=== PATIENT | female | born 1990 | race Caucasian/White ===

== ENCOUNTER → 2020-03-11 11:32 | Outpatient (CLI) | payer MEDICAID, SELFPAY ==
[2020-03-03 10:41] VITALS: BMI 23.0
--- NOTE | 2020-03-11 11:32 | US_ITS ---
STUDY: ULTRASOUND OF THE FEMALE PELVIS - COMPLETE REASON FOR EXAM: Female, 29 years old. IRREGULAR MENSES -- LT OOPHORECTOMY -- LT PELVIC PAIN LMP: 02/20/2020. TECHNIQUE: Transabdominal and Transvaginal TECHNICAL QUALITY: Adequate. COMPARISON: None. FINDINGS: The uterus is anteverted and is in a midline position. The uterus measures 9.2 cm x 5.6 cm x 4.0 cm. There is a Nabothian cyst of the cervix. The endometrium measures 4.6 mm in thickness, and is hyperechoic. There is no demonstrated endometrial mass. There is no demonstrated myometrial mass. I.U.D. - The patient does not have an I.U.D. The right ovary is visualized. The right ovary measures 3.6 cm x 2.6 cm x 1.9 cm. A dominant follicle is seen within the ovary measuring 1.7 cm x 1.9 cm x 1.7 cm. There is no visualized right adnexal mass or complex lesion. There is normal arterial and normal venous vascularity. The patient is status post left nephrectomy. There is minimal fluid in the cul-de-sac. US/Transvaginal Non- IMPRESSION: 1.7 cm x 1.9 cm by 1.7 cm dominant follicle in the right ovary. The patient is status post left oophorectomy. Minimal amount of free fluid in the cul-de-sac. Electronically Signed: Epifanio Anand, at 14:25 EDT , Service support ,
--- NOTE | 2020-03-11 11:32 | US_ITS ---
STUDY: ULTRASOUND OF THE FEMALE PELVIS - COMPLETE REASON FOR EXAM: Female, 29 years old. IRREGULAR MENSES -- LT OOPHORECTOMY -- LT PELVIC PAIN LMP: 02/20/2020. TECHNIQUE: Transabdominal and Transvaginal TECHNICAL QUALITY: Adequate. COMPARISON: None. FINDINGS: The uterus is anteverted and is in a midline position. The uterus measures 9.2 cm x 5.6 cm x 4.0 cm. There is a Nabothian cyst of the cervix. The endometrium measures 4.6 mm in thickness, and is hyperechoic. There is no demonstrated endometrial mass. There is no demonstrated myometrial mass. I.U.D. - The patient does not have an I.U.D. The right ovary is visualized. The right ovary measures 3.6 cm x 2.6 cm x 1.9 cm. A dominant follicle is seen within the ovary measuring 1.7 cm x 1.9 cm x 1.7 cm. There is no visualized right adnexal mass or complex lesion. There is normal arterial and normal venous vascularity. The patient is status post left nephrectomy. There is minimal fluid in the cul-de-sac. US/Pelvic (Non ) IMPRESSION: 1.7 cm x 1.9 cm by 1.7 cm dominant follicle in the right ovary. The patient is status post left oophorectomy. Minimal amount of free fluid in the cul-de-sac. Electronically Signed: Epifanio Anand, at 14:25 EDT , Service support ,
== END ==
PROVIDERS: Referring Provider Nurse Practitioner Women's Health; Visit Provider Nurse Practitioner Women's Health
DX: N93.9 Abnormal uterine and vaginal bleeding, unspecified (principal)
CPT/HCPCS: 76830; 76856

== ENCOUNTER → 2020-04-01 13:46 | Outpatient (CLI) | payer MEDICAID, SELFPAY ==
[2020-03-03 10:41] VITALS: BMI 23.0
[2020-04-01 15:06] LABS: hCG Titer Quant., Serum 373 mIU/mL (1-3)
== END ==
PROVIDERS: Referring Provider Nurse Practitioner Women's Health; Visit Provider Nurse Practitioner Women's Health
DX: N91.2 Amenorrhea, unspecified (principal)
CPT/HCPCS: 36415; 84702

== ENCOUNTER → 2020-04-03 10:05 | Outpatient (CLI) | payer MEDICAID, SELFPAY ==
[2020-03-03 10:41] VITALS: BMI 23.0
[2020-04-03 11:46] LABS: hCG Titer Quant., Serum 572 mIU/mL (1-3)
== END ==
PROVIDERS: Referring Provider Nurse Practitioner Women's Health; Visit Provider Nurse Practitioner Women's Health
DX: N91.2 Amenorrhea, unspecified (principal)
CPT/HCPCS: 36415; 84702

== ENCOUNTER → 2021-05-19 10:34 | Outpatient (CLI) | payer MEDICAID, SELFPAY ==
--- NOTE | 2021-05-19 10:36 | NM_ITS ---
Gastric emptying study INDICATION: Abdominal pain, nausea, vomiting. TECHNIQUE: After the administration of 1 mCi of technetium 99m sulfur colloid in a meal of oatmeal orally, multiple scintigraphic images of the abdomen and pelvis were obtained. Furthermore, counts were obtained in the gastric emptying curve was plotted. FINDINGS: There is normal uptake within the stomach with passage through the duodenum into the small bowel. After 30 minutes, there is 51% gastric retention which is normal. After 1 hour, there is 27% gastric retention which is decreased consistent with rapid gastric emptying. T1 half is calculated to be 29 minutes which is decreased. IMPRESSION: Rapid gastric emptying. Electronically Signed: Harshad Adkins MD at 12:28 EDT Tel , Service support , NM/Gastric Emptying Study
== END ==
PROVIDERS: Referring Provider Internal Medicine Gastroenterology; Visit Provider Internal Medicine Gastroenterology
DX: R11.2 Nausea with vomiting, unspecified (principal)
CPT/HCPCS: 78264; A9541

== ENCOUNTER → 2021-07-28 13:32 | Outpatient (CLI) | payer MEDICAID, SELFPAY ==
--- NOTE | 2021-07-28 13:36 | CT_ITS ---
STUDY: CT ABDOMEN AND PELVIS WITH CONTRAST REASON FOR EXAM: Female, 30 years old. Dumping syndrome, GERD, nausea and vomiting RADIATION DOSAGE (If Supplied By Facility): CTDIvol = ( 12.06 ) mGy, DLP = ( 374.92 ) mGycm TECHNIQUE: Transaxial images were obtained from the dome of the diaphragm to the symphysis pubis with oral contrast. Oral and amp;amp; IV Readi-CAT and amp;amp; 100mL Isovue-300 was administered. Sagittal and coronal images were reconstructed. Individualized dose optimization techniques were used for this CT. COMPARISON: None. FINDINGS: The visualized lung bases are unremarkable. The visualized portions of the heart are within normal limits. Normal liver. Normal gallbladder and extrahepatic biliary system. Normal spleen. Normal pancreas. Normal bilateral adrenal glands. Normal right kidney. Normal left kidney. There is a small hiatal hernia. Normal small intestine. Normal colon. Moderate amount of fecal material is seen in the right hemicolon. The appendix is visualized and appears normal. Normal abdominal aorta. Normal inferior vena cava. Normal retroperitoneum. Normal urinary bladder. Small amount of free fluid is seen in the cul-de-sac. There is evidence of a dominant follicle in the right ovary. Normal abdominal wall. Normal osseous structures. CT/Abdomen/Pelvis WITH Contrast IMPRESSION: Small amount of free fluid in the cul-de-sac. Dominant follicle in the right ovary. Electronically Signed: Epifanio Anand MD at 15:18 EST , Service support ,
== END ==
PROVIDERS: Referring Provider Internal Medicine Gastroenterology; Visit Provider Internal Medicine Gastroenterology
DX: K91.1 Postgastric surgery syndromes (principal); K21.9 Gastro-esophageal reflux disease without esophagitis; R11.2 Nausea with vomiting, unspecified
CPT/HCPCS: 74177; 87426; Q9967

== ENCOUNTER 2021-08-16 11:57 | Day surgery (SDC) | payer MEDICAID, SELFPAY ==
[2021-08-16] VITALS (7 sets, daily range): BP systolic 88–131; BP diastolic 51–108; PULSE 60–74; RESP 16; TEMP 35.7–36.2; O2SAT 98–100; BMI 24.2
--- NOTE | 2021-08-16 12:05 | HP.PCM_ITS ---
History and Physical Date of Admission: 08/16/21 SANTANA REIS, is a 30 F who presents to the office today for Last visit 05/26/21 for continued evaluation of nausea and abdominal pain. Gastric emptying study performed showed rapid emptying. Dumping syndrome ? recommend anti-dumping diet. Decrease protein intake and small frequent meals. GERD ? Stop current PPI and start famotidine BID Nausea and vomiting ? Zofran to break the cycle and hopefully slow gastric emptying. Continues to have nausea and abdominal pain. Famotidine has not had any noticeable effect. Zofran has been helpful but she has to take this frequently. States that increased abdominal pressure makes nausea and abdominal pain worse. Has reduced protein to 25grams of added protein. Small frequent meals is going well overall, but has not made a difference. She has not had an EGD done by this office. She thinks she had one previously but doesn?t remember the results. Around this time she was told she has an overactive gallbladder. ROS Gastro GI: Positive for abdominal pain, bloating, diarrhea, heartburn, nausea/dyspepsia and vomiting Musc Musculoskeletal: Positive for back pain and muscle weakness Psych Psychiatric: Positive for anxiety Exam Const General: cooperative and comfortable Nutritional Appearance: average body habitus and well nourished [facility] Head: normal to inspection Ears: hearing grossly normal bilaterally Nose: external nose normal Face and sinus: normal facial exam Mouth: oral mucosae normal Throat: posterior oropharynx normal Eyes General: appearance normal, both eyes and all related structures Neck Neck: normal visual inspection Chest Chest palpation & inspection: normal inspection of the chest and normal palpation of entire chest wall Resp Effort & Inspection: normal respiratory effort Auscultation: Bilateral: Clear to Auscultation Cardio Palpation: normal PMI Rate: regular rate Rhythm: regular rhythm GI Inspection: normal to inspection Auscultation: normal bowel sounds Percussion: normal to percussion Palpation: no hepatosplenomegaly Skin General: no rashes or lesions noted Neuro General: patient alert Extrem General: normal to inspection Psych Affect: normal affect Quality Reporting Tobacco Screening ([facility]) Smoking Status: Never smoker Assessment and Plan Assessment and Plan (1) Dumping syndrome: Status: Acute Plan - Dr. Ni Friend, DO: She will need an upper endoscopy to evaluate her upper GI tract. She had a gastric emptying study that showed an accelerated emptying of the stomach in less than 15 minutes. This possibly secondary to a wide-open pylorus or an overactive peristalsis in the stomach. We will evaluate this more thoroughly with an upper endoscopy. (2) GERD (gastroesophageal reflux disease): Status: Acute Plan - Dr. Ni Friend, DO: She is not having any good results with PPI therapy or H2 receptor jessie. I suspect that she has nonerosive reflux disease. We will evaluate this on upper endoscopy (3) Nausea and vomiting: Status: Acute Plan - Dr. Ni Friend, DO: Nausea vomiting possibly secondary to an accelerated gastrocolic reflex versus a functional bowel disease. We will give her a short course of Reglan at night because most of her nausea is in the morning. The risk and benefits of metoclopramide therapy were expressed to the patient. Plan Details Other Medications: New: metoclopramide HCl 5 mg PO QHS 60 tabs 0RF I have re-examined the patient. There are no clinical changes since date of exam.
[2021-08-16 12:25] LABS: Internal QC Validated? YES +Cl - CLEAR BKGD; Pregnancy, Urine Negative Negative
[2021-08-16] MEDS: Lactated Ringers 1,000 ML 15 ML IV (12:27)
--- NOTE | 2021-08-16 13:00 | EGD_PTH ---
PATIENT: SANTANA REIS LOC: EN U#:[id number] AGE/SX: 30/F ROOM: RE08/16/[address]: Dr. Last Arreguin DO : 1990 BED: DIS: 08/16/2021 SPEC #: [id number] RECD: 08/16/21 15:02 STATUS: PAYAM GRACIE #: [id number] JADON: 08/16/21 13:[address]: Last Arreguin DEPT: SURGICAL PATHOLOGY RECD BY: Yuliya Vann Tissues: A - Duodenum, NOS B - Gastric mucous membrane C - Esophagus, NOS Procedures: Special Stain Group II Surgery Specimen Level IV Alcian Blue/PAS (control) HEADER OPERATION: EGD ([facility]) PRE-OP DIAGNOSIS: Dumping syndrome, GERD, nausea and vomiting TISSUE SUBMITTED: A ? Duodenum biopsy, B ? Gastric antrum biopsy for histo and H. pylori, C ? Distal esophagus biopsy MICROSCOPIC DIAGNOSIS A. Duodenum, biopsy: No pathologic change. B. Gastric antrum, biopsy: Chronic gastritis. See comment. C. Distal esophagus, biopsy: Gastroesophageal junctional mucosa with mild chronic inflammation and focal changes of reflux. No evidence of goblet cell metaplasia. See comment. AM:kota 08/18/2021 COMMENT B. The results of immunohistochemistry for Helicobacter pylori will be reported separately ([id number]). C. Alcian blue/PAS stain with matched control supports the above diagnosis. MICROSCOPIC DESCRIPTION Slides are reviewed. GROSS DESCRIPTION A - Received in fixative is one container labeled with the patient's name and designated duodenum biopsy. The specimen consists of multiple irregular fragments of light rich soft tissue that in aggregate measure 1.5 x 0.5 x 0.1 cm. The specimen is totally submitted in one cassette. B - Received in fixative is one container labeled with the patient's name and designated antrum biopsy. The specimen consists of multiple irregular fragments of light rich soft tissue that in aggregate measure 1.5 x 0.3 x 0.1 cm. The specimen is totally submitted in one cassette. C - Received in fixative is one container labeled with the patient's name and designated distal esophagus biopsy. The specimen consists of multiple irregular fragments of light rich soft tissue that in aggregate measure 1 x 0.3 x 0.1 cm. The specimen is totally submitted in one cassette. / ORIANA:kota 08/17/21 TC:3 CPT: 85639 x3, 93373
--- NOTE | 2021-08-16 13:00 | IMM_PTH ---
PATIENT: SANTANA REIS LOC: EN U#:[id number] AGE/SX: 30/F ROOM: RE08/16/[address]: Dr. Last Arreguin DO : 1990 BED: DIS: 08/16/2021 SPEC #: [id number] RECD: 08/17/21 09:39 STATUS: PAYAM GRACIE #: [id number] JADON: 08/16/21 13:[address]: Last Arreguin DEPT: IMMUNOHISTOCHEMISTRY RECD BY: Shannan Rey Tissues: B - Stomach, NOS Procedures: H Pylori (initial) PHYSICIAN & INSTITUTION [place] [id number] SPECIMEN INFORMATION: Tissue Source: B ? Gastric antrum Clinical Info: Dumping syndrome, GERD, nausea, vomiting Specimen Number: [id number] CPT code: 53035 METHODOLOGY: Deparaffinized sections of prefer/formalin-fixed tissue or PAP/DQ stained slides are incubated with monoclonal/polyclonal antibodies/oligonucleotide probes. Localization is made via biotin free immunoperoxidase method. Appropriate controls are performed and reacted as expected. Results on target cell population are indicated in the following table: RESULTS: ANTIBODY / CLONE RESULT Block B H Pylori (polyclonal) negative These tests were developed and their performance characteristics determined by [facility]. They may not have been cleared or approved by the U.S. Food and Drug Administration. The FDA has determined that such clearance or approval is not necessary. INTERPRETATION: B. Gastric antrum, biopsy: Negative for Helicobacter pylori organisms. AM:kota 08/18/2021
--- NOTE | 2021-08-16 13:41 | OP.EGD_ITS ---
Patient Name: Ruby Ramos Procedure Date: 08/16/2021 1:14 PM Date of : 1990 Age: 30 Procedure: Upper GI endoscopy Indications: Epigastric abdominal pain Providers: Last Arreguin DO Referring MD: Last Arreguin DO Medicines: See the Anesthesia note for documentation of the administered medications Patient Profile: This is a 30 year old female. Refer to note in patient chart for documentation of history and physical. Patient has symptoms. The symptoms first began within the past few months. Complications: No immediate complications. Procedure: Pre-Anesthesia Assessment: - Prior to the procedure, a History and Physical was performed, and patient medications and allergies were reviewed. The risks and benefits of the procedure and the sedation options and risks were discussed with the patient. All questions were answered and informed consent was obtained. Patient identification and proposed procedure were verified by the physician in the pre-procedure area. Mental Status Examination: alert and oriented. Airway Examination: normal oropharyngeal airway and neck mobility. Respiratory Examination: clear to auscultation. CV Examination: normal. Prophylactic Antibiotics: The patient does not require prophylactic antibiotics. Prior Anticoagulants: The patient has taken no previous anticoagulant or antiplatelet agents. ASA Grade Assessment: II - A patient with mild systemic disease. After reviewing the risks and benefits, the patient was deemed in satisfactory condition to undergo the procedure. The anesthesia plan was to use moderate sedation / analgesia (conscious sedation). Immediately prior to administration of medications, the patient was re-assessed for adequacy to receive sedatives. The heart rate, respiratory rate, oxygen saturations, blood pressure, adequacy of pulmonary ventilation, and response to care were monitored throughout the procedure. The physical status of the patient was re-assessed after the procedure. After obtaining informed consent, the endoscope was passed under direct vision. Throughout the procedure, the patient's blood pressure, pulse, and oxygen saturations were monitored continuously. The Endoscope was introduced through the mouth, and advanced to the second part of duodenum. The upper GI endoscopy was accomplished without difficulty. The patient tolerated the procedure well. Moderate Sedation: Moderate (conscious) sedation was administered by the endoscopy nurse and supervised by the endoscopist. The patient's oxygen saturation, heart rate, blood pressure and response to care were monitored. Total physician intraservice time was 15 minutes. Scope In: 1:20:22 PM Scope Out: 1:31:55 PM Total Procedure Duration Time 0 hours 11 minutes 33 seconds Findings: LA Grade A (one or more mucosal breaks less than 5 mm, not extending between tops of 2 mucosal folds) esophagitis with no bleeding was found 34 to 35 cm from the incisors. Biopsies were taken with a cold forceps for histology. Verification of patient identification for the specimen was done. Estimated blood loss was minimal. Patchy mildly erythematous mucosa without bleeding was found in the gastric antrum. Biopsies were taken with a cold forceps for histology. Verification of patient identification for the specimen was done. Estimated blood loss was minimal. Patchy mildly erythematous mucosa without active bleeding and with no stigmata of bleeding was found in the duodenal bulb. Biopsies were taken with a cold forceps for histology. Verification of patient identification for the specimen was done. Estimated blood loss was minimal. Impression: - LA Grade A reflux esophagitis. Biopsied. - Erythematous mucosa in the antrum. Biopsied. - Erythematous duodenopathy. Biopsied. Recommendation: - Discharge patient to home. - Resume previous diet. - Continue present medications. - Await pathology results. - Repeat upper endoscopy in 1 year for surveillance based on pathology results. - Return to GI office in 2 weeks. Procedure Code(s): --- Professional --- 98416, Esophagogastroduodenoscopy, flexible, transoral; with biopsy, single or multiple 35582, 59, Moderate sedation services provided by the same physician or other qualified health personal care worker performing the diagnostic or therapeutic service that the sedation supports, requiring the presence of an independent trained observer to assist in the monitoring of the patient's level of consciousness and physiological status; initial 15 minutes of intraservice time, patient age 5 years or older CPT copyright 2017 [employer]. All rights reserved. The codes documented in this report are preliminary and upon mixing operator review may be revised to meet current compliance requirements. Last Arreguin DO 08/16/2021 1:41:17 PM This report has been signed electronically. Number of Addenda: 1 Note Initiated On: 08/16/2021 1:14 PM Addendum Number: 1 Addendum Date: 04/20/2022 6:04:13 AM MAC was used instead of moderate sedation for the patient. Last Arreguin DO 04/20/2022 6:04:18 AM This report has been signed electronically.
== END 2021-08-16 23:59 | disposition home or self-care (01) ==
LOC: EN 12:00 → AC 12:02
PROVIDERS: Anesthesiology; Referring Provider Internal Medicine Gastroenterology; Visit Provider Internal Medicine Gastroenterology
PROC: 0DJ08ZZ Inspection of Upper Intestinal Tract, Via Natural or Artificial Opening Endoscopic (ICD-10-PCS; CPT 43235; principal; 2021-08-16 12:55)
DX: K29.50 Unspecified chronic gastritis without bleeding (principal); K21.00 Gastro-esophageal reflux disease with esophagitis, without bleeding; K91.1 Postgastric surgery syndromes; F41.9 Anxiety disorder, unspecified; Z79.899 Other long term (current) drug therapy; Z87.19 Personal history of other diseases of the digestive system
CPT/HCPCS: 43239; 81025; 87426; 88305; 88313; 88342; C9803; J7120; J2405

== ENCOUNTER 2021-09-27 13:02 | Outpatient (CLI) | payer MEDICAID, SELFPAY ==
[2021-09-30 03:07] LABS: Chlamydia By Nucleic Acid AMP Negative (Negative)
[2021-09-30 16:05] LABS: Gonococcus By Nucleic Acid AMP Negative (Negative)
== END 2021-09-27 23:59 | disposition home or self-care (01) ==
LOC: LABSPEC 13:05
PROVIDERS: Visit Provider Nurse Practitioner Women's Health
DX: N76.0 Acute vaginitis (principal); Z20.2 Contact with and (suspected) exposure to infections with a predominantly sexual mode of transmission
CPT/HCPCS: 87070; 87205; 87491; 87591

== ENCOUNTER 2021-10-07 09:52 | Outpatient (CLI) | payer MEDICAID, SELFPAY ==
--- NOTE | 2021-10-07 09:53 | US_ITS ---
STUDY: ULTRASOUND OF THE FEMALE PELVIS - COMPLETE REASON FOR EXAM: Female, 31 years old. Right pelvic pain. History of prior left nephrectomy. History of endometriosis. LMP: 10/02/2021. TECHNIQUE: Transabdominal and Transvaginal TECHNICAL QUALITY: Adequate. COMPARISON: Comparison is made with prior study dated 03/11/2020. FINDINGS: The uterus is anteverted and is in a midline position. The uterus measures 8.7 cm x 5.8 cm x 4 cm. Normal uterine cervix. The endometrium measures 4.4 mm in thickness, and is hyperechoic. Small amount of fluid is seen in the cervix. There is no demonstrated endometrial mass. There is no demonstrated myometrial mass. I.U.D. - The patient does not have an I.U.D. The right ovary is visualized. The right ovary measures 3.9 cm x 3 cm x 1.2 cm. There is no right ovarian cyst or ovarian mass. There is no visualized right adnexal mass or complex lesion. There is normal arterial and normal venous vascularity. The patient is status post left nephrectomy. There is minimal fluid in the cul-de-sac. The pre void volume of the bladder was 192 ml. Polycystic ovary disease: No. US/Pelvic (Non ) IMPRESSION: Status post left nephrectomy. Minimal amount of free fluid in the cul-de-sac. Electronically Signed: Epifanio Anand MD at 13:01 EST ,
--- NOTE | 2021-10-07 09:53 | US_ITS ---
STUDY: ULTRASOUND OF THE FEMALE PELVIS - COMPLETE REASON FOR EXAM: Female, 31 years old. Right pelvic pain. History of prior left nephrectomy. History of endometriosis. LMP: 10/02/2021. TECHNIQUE: Transabdominal and Transvaginal TECHNICAL QUALITY: Adequate. COMPARISON: Comparison is made with prior study dated 03/11/2020. FINDINGS: The uterus is anteverted and is in a midline position. The uterus measures 8.7 cm x 5.8 cm x 4 cm. Normal uterine cervix. The endometrium measures 4.4 mm in thickness, and is hyperechoic. Small amount of fluid is seen in the cervix. There is no demonstrated endometrial mass. There is no demonstrated myometrial mass. I.U.D. - The patient does not have an I.U.D. The right ovary is visualized. The right ovary measures 3.9 cm x 3 cm x 1.2 cm. There is no right ovarian cyst or ovarian mass. There is no visualized right adnexal mass or complex lesion. There is normal arterial and normal venous vascularity. The patient is status post left nephrectomy. There is minimal fluid in the cul-de-sac. The pre void volume of the bladder was 192 ml. Polycystic ovary disease: No. US/Transvaginal Non- IMPRESSION: Status post left nephrectomy. Minimal amount of free fluid in the cul-de-sac. Electronically Signed: Epifanio Anand MD at 13:01 EST ,
[2021-10-07 12:32] LABS: HIV - WCH Non-Reactive (Nonreactive); Syphilis Antibodies Non-reactive
[2021-10-08 09:49] LABS: HSV 2 IgG < 0.91 index (0.00-0.90)
== END 2021-10-07 23:59 | disposition home or self-care (01) ==
PROVIDERS: Referring Provider Nurse Practitioner Women's Health; Visit Provider Nurse Practitioner Women's Health
DX: Z20.2 Contact with and (suspected) exposure to infections with a predominantly sexual mode of transmission (principal); R10.2 Pelvic and perineal pain; G89.29 Other chronic pain; N80.9 Endometriosis, unspecified
CPT/HCPCS: 36415; 76830; 76856; 86695; 86696; 86703; 86780; 93976

== ENCOUNTER → 2022-02-03 | Outpatient (CLI) | payer MEDICAID, SELFPAY ==
[2022-02-03 13:26] LABS: Estradiol 95.4 pg/mL; Follicle Stimulating Hormone 3.8 mIU/mL; Thyroid Stim Hormone (TSH) 1.42 uIU/mL (0.358-3.74)
== END | disposition home or self-care (01) ==
LOC: PAVLAB 12:36
PROVIDERS: Referring Provider Obstetrics & Gynecology; Visit Provider Obstetrics & Gynecology
DX: R10.2 Pelvic and perineal pain (principal); G89.29 Other chronic pain; N80.9 Endometriosis, unspecified; Z13.29 Encounter for screening for other suspected endocrine disorder
CPT/HCPCS: 36415; 82670; 83001; 84443

== ENCOUNTER → 2022-02-14 | Outpatient (CLI) | payer MEDICAID, SELFPAY ==
--- NOTE | 2022-02-14 08:49 | US_ITS ---
STUDY: ULTRASOUND OF THE FEMALE PELVIS - COMPLETE REASON FOR EXAM: Female, 31 years old. Pelvic pain LMP: 02/06/2022. TECHNIQUE: Transabdominal and Transvaginal TECHNICAL QUALITY: Adequate. COMPARISON: Comparison is made with prior study dated 10/07/2021. FINDINGS: The uterus is anteverted and is in a midline position. The uterus measures 7.5 cm x 5.9 cm x 4.5 cm. Normal uterine cervix. The endometrium measures 7 mm in thickness, and is hyperechoic. There is no demonstrated endometrial mass. There is no demonstrated myometrial mass. I.U.D. - The patient does not have an I.U.D. The right ovary is visualized. The right ovary measures 4.1 cm x 3.1 cm x 1.7 cm. Small follicles are seen within the right ovary. There is no visualized right adnexal mass or complex lesion. There is normal arterial and normal venous vascularity. The patient is status post left oophorectomy. Small amount of free fluid is seen adjacent to the right orbit. The pre void volume of the bladder was 36 ml. US/Pelvic (Non ) IMPRESSION: Status post left oophorectomy. Small follicles are seen in the right ovary. Small amount of free fluid surrounding the right ovary. Electronically Signed: Epifanio Anand MD at 14:50 EDT ,
--- NOTE | 2022-02-14 08:49 | US_ITS ---
STUDY: ULTRASOUND OF THE FEMALE PELVIS - COMPLETE REASON FOR EXAM: Female, 31 years old. Pelvic pain LMP: 02/06/2022. TECHNIQUE: Transabdominal and Transvaginal TECHNICAL QUALITY: Adequate. COMPARISON: Comparison is made with prior study dated 10/07/2021. FINDINGS: The uterus is anteverted and is in a midline position. The uterus measures 7.5 cm x 5.9 cm x 4.5 cm. Normal uterine cervix. The endometrium measures 7 mm in thickness, and is hyperechoic. There is no demonstrated endometrial mass. There is no demonstrated myometrial mass. I.U.D. - The patient does not have an I.U.D. The right ovary is visualized. The right ovary measures 4.1 cm x 3.1 cm x 1.7 cm. Small follicles are seen within the right ovary. There is no visualized right adnexal mass or complex lesion. There is normal arterial and normal venous vascularity. The patient is status post left oophorectomy. Small amount of free fluid is seen adjacent to the right orbit. The pre void volume of the bladder was 36 ml. US/Transvaginal Non- IMPRESSION: Status post left oophorectomy. Small follicles are seen in the right ovary. Small amount of free fluid surrounding the right ovary. Electronically Signed: Epifanio Anand MD at 14:50 EDT ,
== END | disposition home or self-care (01) ==
LOC: OPUS 08:48
PROVIDERS: Visit Provider Obstetrics & Gynecology
DX: R10.2 Pelvic and perineal pain (principal); G89.29 Other chronic pain
CPT/HCPCS: 76830; 76856; 93976

== ENCOUNTER → 2022-04-13 | Outpatient (CLI) | payer MEDICAID, SELFPAY ==
--- NOTE | 2022-04-13 12:33 | RAD_ITS ---
STUDY: HISTORY OF SEPTOPLASTY. REASON FOR EXAM: Female, 31 years old. Tubal patency. The patient is status post resection of the left fallopian tube. FLUOROSCOPY TIME (if supplied): ( 22 seconds ) minutes/seconds. One image was submitted. TECHNIQUE: A hysterosalpingogram was performed by the security officer. Imaging was provided. COMPARISON: None. FINDINGS: The uterus is unremarkable. The right fallopian tube is patent with spill. RAD/Salpingogram IMPRESSION: The right fallopian tube is patent with spill. The uterus is unremarkable. Electronically Signed: Epifanio Anand MD at 13:24 EDT ,
--- NOTE | 2022-04-13 13:04 | OP.PCM_ITS ---
Operative Report Date of Procedure: 04/13/22 Preop diagnosis: Infertility Postop diagnosis: Infertility, right tubal patency, surgical absence of left tube Procedure: Hysterosalpingogram Surgeon: Valerie Rivera DO Implantable devices: None Complications: None Findings: Bilateral tubal patency and normal uterine cavity Operative details: Patient was taken to the x-ray room and was placed on the x- ray table and was in the dorsal lithotomy position. Speculum was placed in the vagina and the cervix prepped with Betadine and the HSG catheter was easily introduced into the uterus and speculum removed. Radiologist was brought in and while pushing radiopaque dye into the uterus via the HSG catheter the radiologist took multiple images and views and confirmed right tubal patency. The left fallopian tube is surgically removed. No gross uterine filling defects or abnormalities were seen. All instruments removed from the vagina and the uterus without complication. Patient tolerated the procedure well. Multi Select Codes Urinary/Genital Urinary/Genital CPT Codes: 14142 HSG/SIS
== END | disposition home or self-care (01) ==
LOC: RAD 12:32
PROVIDERS: Referring Provider Obstetrics & Gynecology; Visit Provider Obstetrics & Gynecology
DX: Z31.9 Encounter for procreative management, unspecified (principal)
CPT/HCPCS: 58340; 74740; Q9967

== ENCOUNTER → 2022-06-25 | Outpatient (CLI) | payer MEDICAID, SELFPAY | END | disposition home or self-care (01) | LOC: LAB 09:12 | PROVIDERS: Referring Provider Nurse Practitioner Women's Health; Visit Provider Nurse Practitioner Women's Health | DX: N97.0 Female infertility associated with anovulation (principal) | CPT/HCPCS: 36415; 84144 ==

== ENCOUNTER → 2022-07-17 | Outpatient (CLI) | payer MEDICAID, SELFPAY ==
[2022-07-17 11:07] LABS: HIV - WCH Non-Reactive (Nonreactive); Hepatitis C Antibody Non-Reactive (Nonreactive); Syphilis Antibodies Non-reactive
[2022-07-18 10:58] LABS: HSV 2 IgG < 0.91 index (0.00-0.90)
[2022-07-19 06:07] LABS: Chlamydia By Nucleic Acid AMP Negative (Negative)
[2022-07-19 09:26] LABS: Gonococcus By Nucleic Acid AMP Negative (Negative)
== END | disposition home or self-care (01) ==
LOC: PAVLAB 09:40
PROVIDERS: Referring Provider Nurse Practitioner Women's Health; Visit Provider Nurse Practitioner Women's Health
DX: Z20.2 Contact with and (suspected) exposure to infections with a predominantly sexual mode of transmission (principal)
CPT/HCPCS: 36415; 86695; 86696; 86703; 86780; 86803; 87491; 87591

== ENCOUNTER 2022-10-04 11:29 | Outpatient (CLI) | payer MEDICAID, SELFPAY ==
--- NOTE | 2022-10-04 11:30 | US_ITS ---
STUDY: ULTRASOUND OF THE FEMALE PELVIS - COMPLETE REASON FOR EXAM: Female, 32 years old. Pelvic pain LMP: 09/11/2022. TECHNIQUE: Transabdominal and Transvaginal TECHNICAL QUALITY: Adequate. COMPARISON: Comparison is made with prior study dated 02/11/2022. FINDINGS: The uterus is anteverted and is in a midline position. The uterus measures 9.9 cm x 6.2 cm x 4.9 cm. There is a Nabothian cyst of the cervix. The endometrium measures 8 mm in thickness, and is hyperechoic. There is no demonstrated endometrial mass. There is no demonstrated myometrial mass. I.U.D. - The patient does not have an I.U.D. The right ovary is visualized. The right ovary measures 4.4 cm x 3.2 cm x 2.2 cm. A complex cyst measuring 2 cm x 1.6 cm x 1.6 cm in the right ovary. There is no visualized right adnexal mass or complex lesion. There is normal arterial and normal venous vascularity. The patient is status post left oophorectomy. There is minimal fluid in the cul-de-sac. The pre void volume of the bladder was 129 ml. US/Pelvic w/ Transvaginal IMPRESSION: 2 cm x 1.6 cm x 1.6 cm complex cyst in the right ovary. Follow-up is recommended. Electronically Signed: Epifanio Anand MD at 15:42 EST ,
[2022-10-04 11:41] LABS: hCG Titer Quant., Serum < 1 mIU/mL (1-3)
== END 2022-10-04 23:59 | disposition home or self-care (01) ==
PROVIDERS: Referring Provider Obstetrics & Gynecology; Visit Provider Registered Nurse
DX: R10.2 Pelvic and perineal pain (principal); G89.29 Other chronic pain
CPT/HCPCS: 36415; 76830; 76856; 84702; 93976

== ENCOUNTER → 2022-11-09 | Outpatient (CLI) | payer MEDICAID, SELFPAY ==
--- NOTE | 2022-11-09 14:35 | US_ITS ---
STUDY: ULTRASOUND OF THE FEMALE PELVIS - COMPLETE REASON FOR EXAM: Female, 32 years old. ov mass f/u . Patient is status post left nephrectomy. LMP: November 03, 2002. TECHNIQUE: Transabdominal and Transvaginal TECHNICAL QUALITY: Adequate. COMPARISON: Comparison is made with prior study dated October 04, 2022. FINDINGS: The uterus is anteverted and is in a midline position. The uterus measures 8.4 cm x 5.1 cm x 4.2 cm. Normal uterine cervix. The endometrium measures 6.4 mm in thickness, and is hyperechoic. There is no demonstrated endometrial mass. There is no demonstrated myometrial mass. I.U.D. - The patient does not have an I.U.D. The right ovary is visualized. The right ovary measures 5.1 cm x 2.9 cm x 2.1 cm. There is a 1.4 cm x 1.2 cm x 1.3 centimeter complex cyst in the right ovary. This has decreased in size as compared to prior study. There is no visualized right adnexal mass or complex lesion. There is normal arterial and normal venous vascularity. The patient is status post left oophorectomy US/Pelvic w/ Transvaginal IMPRESSION: Decreased size of the complex cyst in the right ovary. It presently measures 1.4 cm x 1.2 cm x 1.3 cm. The patient is status post left oophorectomy. Electronically Signed: Epifanio Anand MD at 10:38 EDT ,
== END | disposition home or self-care (01) ==
LOC: US 14:33
PROVIDERS: Referring Provider Nurse Practitioner Women's Health; Visit Provider Nurse Practitioner Women's Health
DX: R10.2 Pelvic and perineal pain (principal); G89.29 Other chronic pain
CPT/HCPCS: 76830; 76856

== ENCOUNTER → 2023-03-09 | Outpatient (CLI) | payer MEDICAID, SELFPAY ==
[2023-03-12 22:07] LABS: Chlamydia By Nucleic Acid AMP Negative (Negative); Gonococcus By Nucleic Acid AMP Negative (Negative)
[2023-03-16 15:08] LABS: HPV APTIMA, High Risk Negative (Negative)
== END | disposition home or self-care (01) ==
LOC: LABSPEC 16:14
PROVIDERS: Referring Provider Obstetrics & Gynecology; Visit Provider Obstetrics & Gynecology
DX: Z12.4 Encounter for screening for malignant neoplasm of cervix (principal); Z11.3 Encounter for screening for infections with a predominantly sexual mode of transmission; N89.8 Other specified noninflammatory disorders of vagina
CPT/HCPCS: 87070; 87205; 87491; 87591; 87624; 88175; G0145

== ENCOUNTER → 2023-04-13 | Outpatient (CLI) | payer MEDICAID, SELFPAY ==
[2023-04-13 12:11] LABS: HIV - WCH Non-Reactive (Nonreactive); Hepatitis B Surface Antigen Non-Reactive (Nonreactive); Hepatitis C Antibody Non-Reactive (Nonreactive); Syphilis Antibodies Non-reactive
[2023-04-14 07:08] LABS: HSV 2 IgG < 0.91 index (0.00-0.90)
== END | disposition home or self-care (01) ==
LOC: PAVLAB 10:44
PROVIDERS: Referring Provider Obstetrics & Gynecology; Visit Provider Obstetrics & Gynecology
DX: Z11.3 Encounter for screening for infections with a predominantly sexual mode of transmission (principal)
CPT/HCPCS: 36415; 86695; 86696; 86703; 86780; 86803; 87340

== ENCOUNTER → 2023-08-23 | Outpatient (CLI) | payer MEDICAID, SELFPAY ==
[2023-08-23 11:34] LABS: HIV - WCH Non-Reactive (Nonreactive); Hepatitis B Surface Antigen Non-Reactive (Nonreactive); Hepatitis C Antibody Non-Reactive (Nonreactive); Syphilis Antibodies Non-reactive
[2023-08-24 07:08] LABS: HSV 2 IgG < 0.91 index (0.00-0.90)
== END | disposition home or self-care (01) ==
PROVIDERS: Referring Provider Nurse Practitioner Women's Health; Visit Provider Nurse Practitioner Women's Health
DX: Z20.2 Contact with and (suspected) exposure to infections with a predominantly sexual mode of transmission (principal)
CPT/HCPCS: 36415; 86695; 86696; 86703; 86780; 86803; 87340

== ENCOUNTER → 2023-11-05 | Outpatient (CLI) | payer MEDICAID, SELFPAY ==
[2023-11-05 14:02] LABS: HIV - WCH Non-Reactive (Nonreactive); Hepatitis B Surface Antigen Non-Reactive (Nonreactive); Hepatitis C Antibody Non-Reactive (Nonreactive); Syphilis Antibodies Non-reactive
[2023-11-06 05:08] LABS: HSV 2 IgG < 0.91 index (0.00-0.90)
== END | disposition home or self-care (01) ==
LOC: LAB 12:12
PROVIDERS: Referring Provider Obstetrics & Gynecology; Visit Provider Obstetrics & Gynecology
DX: B00.9 Herpesviral infection, unspecified (principal)
CPT/HCPCS: 36415; 86695; 86696; 86703; 86780; 86803; 87340

== ENCOUNTER → 2023-12-05 | Outpatient (CLI) | payer MEDICAID, SELFPAY ==
--- NOTE | 2023-12-05 12:30 | RAD_ITS ---
INDICATION: infertility EXAMINATION/TECHNIQUE: Routine hysterosalpingography was performed. Total Fluoroscopic Time: 5.1 seconds AND number of Fluoroscopic Images: 4 OR Radiation dosage index: 13.63 mGy. COMPARISON: No relevant prior comparison study available FINDINGS: The uterine cavity contour is unremarkable. There are no filling defects or abnormalities. Both fallopian tubes are patent with free peritoneal spillage bilaterally. RAD/Salpingogram IMPRESSION: Negative hysterosalpingogram. Electronically Signed: Epifanio Anand MD at 13:28 EDT ,
--- NOTE | 2023-12-05 13:03 | OP.PCM_ITS ---
Problems Associated Problem List Diagnoses (1) Infertility: (2) Endometriosis: (3) Chronic pelvic pain in female: Report of Operation Date of Procedure: 12/05/23 Pre-Operative Diagnosis: infertility, history of left salpingectomy Post-Operative Diagnosis: infertility, history of left salpingectomy Surgery/Procedure Performed:: hysterosalpingogram Description of Surgical Findings:: Preop diagnosis: Infertility Postop diagnosis:Infertility , right tubal patency Procedure: Hysterosalpingogram Surgeon:Valerie Rivera DO Implantable devices: None Complications: None Findings: Bilateral tubal patency and normal uterine cavity Operative details: Patient was taken to the x-ray room and was placed on the x- ray table and was in the dorsal lithotomy position. Speculum was placed in the vagina and the cervix prepped with Betadine and the HSG catheter was easily introduced into the uterus and speculum removed. Radiologist was brought in and while pushing radiopaque dye into the uterus via the HSG catheter the radiologist took multiple images and views and confirmed right tubal patency seen. No gross uterine filling defects or abnormalities were seen. All instruments removed from the vagina and the uterus without complication. Patient tolerated the procedure well. Multi Select Codes Urinary/Genital Urinary/Genital CPT Codes: 83219 HSG/SIS
== END | disposition home or self-care (01) ==
PROVIDERS: Visit Provider Obstetrics & Gynecology
DX: N97.9 Female infertility, unspecified (principal)
CPT/HCPCS: 58340; 74740; Q9967

== ENCOUNTER → 2024-01-24 | Outpatient (CLI) | payer MEDICAID, SELFPAY ==
[2024-01-24 16:30] LABS: Absolute Lymphocyte Count 2.48 X10^3/uL (0.83-4.51); Basophil# 0.07 X10^3/uL; Eosinophil# 0.06 X10^3/uL; Eosinophils% 0.8 % (0-5); Hematocrit 35.5 % (37-47); Lymphocyte # 2.48 X10^3/ul (0.83-4.51); Lymphocyte % 33.8 % (19-41); Mean Corp Hgb Conc 33.8 g/dL (32-36); Mean Corpuscular Hgb 32.1 pg (27.0-32.0); Mean Corpuscular Volume 94.9 fL (81-99); Mean Platelet Vol. 10.4 fl (6.2-12.0); Monocyte# 0.68 X10^3/uL; Monocyte% 9.3 % (0-10); NRBC Flagged by Analyzer 0 % (0-5); Neutrophil # 4.04 X10^3/uL (2.7-7.7); Platelet Count 253 K/mm3 (150-450); RBC Distribution Width CV 12.7 % (11.6-14.6); RBC Distribution Width SD 44.4 fl (35.1-43.9); Red Blood Count 3.74 M/mm3 (4.2-5.4); White Blood Count 7.3 K/mm3 (4.4-11.0)
[2024-01-24 16:59] LABS: ALB/GLOB Ratio 1.2 RATIO (0.9-2.4); AST(SGOT) 18 U/L (15-37); Alanine Aminotransfer ALT/SGPT 20 U/L (13-56); Alkaline Phosphatase 67 U/L (45-117); Anion Gap 3 (5-15); BUN 20 mg/dL (7-18); BUN/Creat Ratio 20.4 RATIO (10-20); Calcium,Total 9.7 mg/dL (8.5-10.1); Chloride 105 mmol/L (98-107); Creatinine, Serum 0.98 mg/dL (0.55-1.02); EST Glomerular Filtration Rate 69 mL/min (>60); Est Glom Filt Rate - Afr Amer 84 mL/min (>60); Globulin 3.3 g/dL (2.2-4.2); Glucose 97 mg/dL (74-106); Potassium 3.6 mmol/L (3.5-5.1); Prolactin 7.6 ng/mL; Protein, Total 7.3 g/dL (6.4-8.2); Sodium Level 135 mmol/L (136-145); Thyroid Stim Hormone (TSH) 1.36 uIU/mL (0.358-3.74)
[2024-01-24 17:00] LABS: Rubella IgG Reactive (Nonreactive); Vitamin D,25 Hydroxy 47.2 ng/mL
== END | disposition home or self-care (01) ==
PROVIDERS: Referring Provider Obstetrics & Gynecology; Visit Provider Obstetrics & Gynecology
DX: N80.9 Endometriosis, unspecified (principal)
CPT/HCPCS: 36415; 80053; 82306; 83516; 84146; 84402; 84443; 85025; 86762; 86787; 86850; 86900; 86901

== ENCOUNTER → 2024-03-11 | Outpatient (CLI) | payer MEDICAID, SELFPAY ==
[2024-03-14 06:10] LABS: Chlamydia By Nucleic Acid AMP Negative (Negative); Gonococcus By Nucleic Acid AMP Negative (Negative)
== END | disposition home or self-care (01) ==
LOC: LABSPEC 16:30
PROVIDERS: Referring Provider Obstetrics & Gynecology; Visit Provider Obstetrics & Gynecology
DX: Z11.3 Encounter for screening for infections with a predominantly sexual mode of transmission (principal)
CPT/HCPCS: 87491; 87591

== ENCOUNTER 2024-04-08 10:13 | Day surgery (SDC) | payer MEDICAID, SELFPAY ==
[2024-04-01 11:52] LABS: Rubella IgG Reactive (Nonreactive)
[2024-04-01 14:08] LABS: Hemoglobin A1c 5.2 % (3.8-5.6)
[2024-04-02 08:12] LABS: V-Zoster IgG (Immunity) 728 index (Immune >165)
[2024-04-08] VITALS (8 sets, daily range): BP systolic 87–102; BP diastolic 58–65; PULSE 57–67; RESP 14–18; TEMP 35.9–36.5; O2SAT 97–99; BMI 26.1
--- NOTE | 2024-04-08 10:20 | PCM.PRE.AN2 ---
ASA Classification* ASA Classification ASA Classification: 2 Assessment & Plan Anesthesia* Anesthesia Assessment Anesthesia Assessment: Discussed sedation and/or anesthesia options, risks, benefits, and alternatives with patient/parents/legal guardian/POA. Questions invited. The patient/parents/legal guardian/POA seems to understand and agrees to proceed with anesthesia plan. Reviewed the physical assessment, medical history, allergy history and patient home medications list prior to surgery/procedure/anesthetic and documented any changes. Performed airway and anesthesia risk assessments. Anesthesia Type Anesthesia Type: MAC Anesthesia Focused Assessment* Airway Assessment Mouth opens: >3 cm Mallampati Score: II Focused Labs Anesthesia Preop lab: CBC WBC 7.3 K/mm3 (4.4-11.0) 01/24/24 15:50 RBC 3.74 M/mm3 (4.2-5.4) L 01/24/24 15:50 Hgb 12.0 g/dL (12.0-15.0) 01/24/24 15:50 Hct 35.5 % (37-47) L 01/24/24 15:50 Plt Count 253 K/mm3 (150-450) 01/24/24 15:50 CHEMISTRY Potassium 3.6 mmol/L (3.5-5.1) 01/24/24 15:50 Sodium 135 mmol/L (136-145) L 01/24/24 15:50 BUN 20 mg/dL (7-18) H 01/24/24 15:50 Creatinine 0.98 mg/dL (0.55-1.02) 01/24/24 15:50 Glucose 97 mg/dL (74-106) 01/24/24 15:50 TSH 1.36 uIU/mL (0.358-3.74) 01/24/24 15:50 COAG HCG, Quant < 1 mIU/mL (1-3) 10/04/22 10:40 Urine Test Negative Negative 08/16/21 12:11 Pre-Assessment Diagnosis/Proposed Procedure Planned Operative Procedure(s): DIAGNOSTIC HYSTERoscopy Anesthesia History Anesthesia History - occupational therapy asst: Anesthesia History - occupational therapy asst Hx Hospitalization No 03/27/24 13:55 Any Problems With Anesthesia No 03/27/24 13:55 Cholinesterase deficiency No 03/27/24 13:55 You/Your Family Experience No 03/27/24 13:55 fever (hyperthermia) with Relationship Recent Exposure to Contagious No 07/17/22 08:31 Disease Does patient have nerve No 03/27/24 13:55 stimulator Patient instructed to have device shut off --Does patient have Pacemaker or ICD? When Was Last Pacemaker Check QUESTION #4 FULL TEXT: You/Your Family Experience fever (hyperthermia) with Anesthesia Last Oral Intake Last Oral intake: Last Oral Intake NPO since Meds taken in AM with sips of water? Meds patient instructed to take am of surgery PONV PONV - occupational therapy asst: PONV - occupational therapy asst Female Yes 03/27/24 13:55 HX of Motion Sickness No 03/27/24 13:55 HX of N/V After Surgery Yes 03/27/24 13:55 Non-Smoker Yes 03/27/24 13:55 Duration of Surgery greater No 03/27/24 13:55 than 60 minutes Number of Risk Factors 3 03/27/24 13:55 PONV Score Moderate Risk 03/27/24 13:55 Height & Weight Height & Weight: Anesthesia: Height & Weight Height 5 ft 4 in 04/01/24 09:57 Respiratory Assessment Respiratory Assessment - occupational therapy asst: Respiratory Tract Infection Hx - occupational therapy asst Hx Respiratory Tract Infection No 03/27/24 13:55 STOP Sleep Apnea STOP Sleep Apnea - occupational therapy asst: STOP Sleep Apnea - occupational therapy asst Hx Hypertension No 03/27/24 13:55 Hx Sleep Apnea No 03/27/24 13:55 CPAP BIPAP Do you snore loudly (louder No 03/27/24 13:55 than talking or can be heard Do you often feel tired/ No 03/27/24 13:55 fatigued/ sleepy during daytime? Has anyone observed you stop No 03/27/24 13:55 breathing during sleep? STOP Results Negative 03/27/24 13:55 QUESTION #5 FULL TEXT : Do you snore loudly (louder than talking or can be heard through closed doors)? Tobacco Use History Tobacco Use History - occupational therapy asst: Tobacco Use History - occupational therapy asst Tobacco Use Smoking Status Never smoker 03/27/24 13:55 Hx Tobacco Use No 03/27/24 13:55 Years Smoking Packs Smoked per Day Smoking Cessation Date was within the last 15 years Hx Smoking Cessation Date Hx Smoking Cessation Counseling Hematologic Medial History Hematologic Hx - occupational therapy asst: Hematologic Medical Hx - documentation supervisor Hx of Blood Transfusion No 03/27/24 13:55 Hx of Transfusion in last 3 No 03/27/24 13:55 Months Date of Last Transfusion (if within last 3 months) Ever experience any problems No 03/27/24 13:55 with transfusion(s)? Specify any problems Hx of Preganancy in last 3 No 03/27/24 13:55 Months Nurse Filling Out Transfusion [email or web address] 03/27/24 13:55 & Questions: Date: 03/27/24 03/27/24 13:55 Time: 13:58 03/27/24 13:55 Patient unable to answer at this time (ie. confused, unrespo /Reproduction History /Reproductive History - occupational therapy asst: /Reproductive Hx- occupational therapy asst Hx Now No 03/27/24 13:55 Gestational Age (in weeks): EDC: Hx Hx Para Hx Section SAB No 04/01/24 10:00 PFSH Medical History Wears glasses Alcohol use Normal hysteroscopy Depression Anxiety Low iron Anemia Back pain Gastric reflux Non-smoker Dumping syndrome GERD (gastroesophageal reflux disease) Endometriosis Stomach ulcer Home Medications ?Medication ?Instructions ?Recorded ?Last Taken ?Type linaclotide 72 mcg capsule 72 mcg PO QAM #90 caps 08/02/23 Unknown Rx (Linzess) ondansetron 8 mg disintegrating 8 mg PO Q12H PRN Nausea #30 tabs 08/02/23 Unknown Rx tablet acyclovir 400 mg tablet 400 mg PO TID PRN HERPES 03/27/24 Unknown History omeprazole 40 mg capsule,delayed 40 mg PO DAILY 03/27/24 Unknown History release tranexamic acid 650 mg tablet 1,300 mg PO TID PRN menstrual 03/27/24 Unknown History Allergy/AdvReac Type Severity Reaction Status Date / Time No Known Allergies Allergy Verified 04/01/24 09:58 Family History Father Heart disease Hypertension Cancer Myocardial infarction Alcoholism Mother Cervical cancer Brother Hypertension Grandfather Myocardial infarction Lung cancer Heart failure Surgical History H/O unilateral salpingectomy S/P left oophorectomy Status post laparoscopy S/P Social History Smoking Status: Never smoker alcohol intake: current details: occasionally substance use type: does not use caffeine: Yes what type of physical activity do you participate in: weight training frequency: 5-6 times per week seatbelt use: always do you feel safe at home: Yes additional social history: Patient is a MA at [employer] Review of Systems (Anesthesia) ROS Narrative System reviewed and no additional complaints, except as documented.
[2024-04-08 10:31] LABS: Internal QC Validated? YES +Cl - CLEAR BKGD
[2024-04-08 10:32] LABS: Pregnancy, Urine Negative Negative
[2024-04-08] MEDS: Lactated Ringers 1,000 ML 15 ML IV (10:38)
--- NOTE | 2024-04-08 10:42 | PCM.HP.BLA ---
History and Physical Date of Admission: 04/08/24 Intake Vital Signs 03/11/2409:54 04/01/2409:57 Height 5 ft 4 in 5 ft 4 in Weight: 151 lb 2 oz 149 lb 6 oz BMI 25.9 25.6 BP 115/76 114/75 Intake Visit Reasons: diagnostic hysteroscopy Tension Worker Required: No Is patient in pain?: No Allergies No Known Allergies Allergy (Verified 04/01/24 09:58) Medications ?Medication ?Instructions ?Recorded ?Confirmed ?Type linaclotide 72 mcg capsule 72 mcg PO QAM #90 caps 08/02/23 04/01/24 Rx (Linzess) ondansetron 8 mg disintegrating 8 mg PO Q12H PRN Nausea #30 tabs 08/02/23 04/01/24 Rx tablet acyclovir 400 mg tablet 400 mg PO TID PRN HERPES 03/27/24 04/01/24 History omeprazole 40 mg capsule,delayed 40 mg PO DAILY 03/27/24 04/01/24 History release tranexamic acid 650 mg tablet 1,300 mg PO TID PRN menstrual 03/27/24 04/01/24 History Post menopausal: No Patient : No : No PFSH Medical History Wears glasses Alcohol use Normal hysteroscopy Depression Anxiety Low iron Anemia Back pain Gastric reflux Non-smoker Dumping syndrome GERD (gastroesophageal reflux disease) Endometriosis Stomach ulcer Surgical History H/O unilateral salpingectomy S/P left oophorectomy Status post laparoscopy S/P Family History Father Heart disease Hypertension Cancer Myocardial infarction AlcoholismMother Cervical cancerBrother HypertensionGrandfather Myocardial infarction Lung cancer Heart failure Social History Smoking Status: Never smoker alcohol intake: current details: occasionally substance use type: does not use caffeine: Yes what type of physical activity do you participate in: weight training frequency: 5-6 times per week seatbelt use: always do you feel safe at home: Yes additional social history: Patient is a MA at [employer] [facility] HPI diagnostic hysteroscopy Details: SANTANA REIS is a 33 year old who presents for pre-op exam. She is scheduled for a diagnostic hysteroscopy for [facility] information prior to IVF therapy. DO NOT DISCUSS THAT THIS IS FOR FERTILITY WITH THE FAMILY. THEY DO NOT KNOW WHAT SHE IS HAVING THIS FOR. THEY BELIVE IT IS TO FOLLOW UP ON ENDOMETRIOSIS, NOT INFERTILITY. History 1 Elective abortions Hx Para 1 Spontaneous abortions Hx # Term Pregnancies Ectopic pregnancies Hx # Pregnancies Multiple births # of living children Past Pregnancies Del. Date Name GA/Weeks Outcome Route Bth Weight Infant Gen Labor Lgth Anesthesia Del Locatn Provider FOB 11/21/13 Josee 39 live - full term 6lbs 6oz Female Ce Bruno Margarito Delivery Date: 11/21/13 Last Updated by: Wanda Salguero Placenta rupture ROS Const ROS Unobtainable: All systems reviewed & are unremarkable except as noted in H Resp Resp: Reports system reviewed and no additional complaints, except as documented; Denies cough GI GI: Reports as per HPI Psych Psych: Reports system reviewed and no additional complaints, except as documented Exam Const General: cooperative, healthy appearing, comfortable and no acute distress Resp Effort & Inspection: normal respiratory effort Skin General: no rashes or lesions noted Psych Appearance: grossly normal Speech and Movement: speech and movement normal Coding Level of Care Code Off vis,est,level 4 Diagnoses Female infertility N97.9 Assessment and Plan Assessment and Plan (1) Female infertility: Status: Acute Orders: Orders Pelvic w/ Transvaginal Today N97.9 - Female infertility, unspecified Testosterone, Serum Total Today N97.9 - Female infertility, unspecified Plan After discussing the patient's diagnosis and treatment plan options, patient wishes to proceed with surgical management. I have discussed with the patient the risks, benefits, and alternatives of the procedure which include but are not limited to risks of anesthesia, bleeding, infection, possible damage to bowel, bladder, or surrounding vasculature which could lead to additional surgery to evaluate any complications. Patient agrees to procedure and wishes to proceed. ACOG/uptodate references given for additional information regarding procedure. plan for hysteroscopy possible D&C if polyps present. do not discuss details with her grandmother who is her support person prior to and after the procedure.
--- NOTE | 2024-04-08 11:52 | PCM.DC ---
Discharge Instructions Diet Discharge Diet: No restrictions Activity Discharge Activity: Return to Normal Activity, May Shower and May Take a Tub Bath (after 1 week) May resume sexual activity in: 1-2 weeks Weight Bearing Status: Weight bearing as tolerated Lifting Restrictions: none Dressing / Incision Call your doctor if you observe: Fever of 101 or Higher, Using more than 1 pad per hour, Shortness of breath and Uncontrolled pain Follow Up Care Please Follow Up With: Valerie Rivera DO When: Call [phone] to schedule appointment. Test Results: Test results from this visit will be discussed in further detail at your follow-up appointment, if applicable. Discharge Plan Admission Primary Reason for Your Visit: hysteroscopy Attending Provider: Valerie Rivera Primary Care Provider: GEN TAVAREZ Instructions Print Language: Citizen Of [place] Discharge Orders/Prescriptions Prescriptions: No Action Linzess 72 mcg capsule 72 mcg PO QAM Qty: 90 3RF ondansetron 8 mg tablet,disintegrating 8 mg PO Q12H PRN (Reason: Nausea) Qty: 30 2RF acyclovir 400 mg tablet 400 mg PO TID PRN (Reason: HERPES) omeprazole 40 mg capsule,delayed release(DR/EC) 40 mg PO DAILY tranexamic acid 650 mg tablet 1,300 mg PO TID PRN (Reason: menstrual ) Referrals / Follow Up: GEN TAVAREZ [Other] Disposition Disposition (needs filled in before D/C Order can be placed): Home, Self Care
[2024-04-08] MEDS: Lidocaine 1% (20 ml mdv) 20 ML Vial (12:02)
--- NOTE | 2024-04-08 12:17 | PCM.POST.ANE ---
Anesthesia: Postop Eval I Current Vital Signs Temperature: 97.0 F Pulse Rate: 59 Blood Pressure: 93/60 Respiratory Rate: 14 Pulse Ox: 98 Oxygen Delivery Method: Room Air Assessment Airway patent: Yes Spontaneous unlabored respirations: Yes Mental status: Awake and Calm nausea: No Vomiting: No Anesthesia Complication: No Fluid Hydration Crystalloid volume administer (ml): 600 Total IV fluid infused: 600 Progress Note Anesthesia document: Postop Eval 1 completed: Yes
--- NOTE | 2024-04-08 12:19 | OP.PCM_ITS ---
Problems Associated Problem List Diagnoses (1) Female infertility: Report of Operation Date of Procedure: 04/08/24 Pre-Operative Diagnosis: infertility Post-Operative Diagnosis: infertility Surgery/Procedure Performed:: diagnostic hysteroscopy Description of Surgical Findings:: normal uterus with tubal ostia and normal cervix. Surgeon: Valerie Rivera certified medication technician: None Type of Anesthesia: MAC and Topical Anesth Anesthesiologist: Luis Armando Parra Specimen's removed: none Drains: none Estimated Blood Loss (mL): 5cc Description of Procedure: Patient was prepped and draped in a normal sterile fashion under MAC anesthesia. A weighted speculum was placed in the vagina and the anterior lip of the cervix was grasped with a single-tooth tenaculum. A paracervical block was placed with 1% lidocaine. Cervix was progressively dilated to allow passage of a 5 mm hysteroscope. The lining was fully visualized and noted to have normal appearing apex and tubal ostia. Some proliferative appearing tissue was present. No polyps, fibroids, or defects were noted. All instruments were removed from the vagina and excellent hemostasis was noted. Patient was awoken and taken to recovery in stable condition. Grafts/Implants Used: none Complications none Admit VTE Documentation VTE Present on Admission: No VTE Mechan Device Prophylaxis: SCD's Multi Select Codes Urinary/Genital Urinary/Genital CPT Codes: 64529 Hysteroscopy, diagnostic
--- NOTE | 2024-04-08 14:16 | POSTOPAN2_ITS ---
Anesthesia Postop Eval I Sum Postop Eval Completion status Anesthesia document: Postop Eval 1 completed: Yes Anesthesia Postop Eval I Summary Anesthesia Postop Eval I Summary: Anesthesia Postop Eval I: Assessment Summary Airway patent Yes 04/08/24 12:18 METER AND SERVICE LINE INSPECTOR.[email or web address] Spontaneous unlabored Yes 04/08/24 12:18 METER AND SERVICE LINE INSPECTOR.JDEF respirations Mental status Awake,Calm 04/08/24 12:18 METER AND SERVICE LINE INSPECTOR.JDEF nausea No 04/08/24 12:18 METER AND SERVICE LINE INSPECTOR.JDEF Vomiting No 04/08/24 12:18 METER AND SERVICE LINE INSPECTOR.[email or web address] Anesthesia Postop Eval I: Fluid Summary Crystalloid volume administer 600 04/08/24 12:18 METER AND SERVICE LINE INSPECTOR.JDEF (ml) Colloids volume administered ( ml) Blood Product volume administered (ml) Total IV fluid infused 600 04/08/24 12:18 METER AND SERVICE LINE INSPECTOR.JDEF Anesthesia Postop Eval I: Summary Notes Anesthesia Complication No 04/08/24 12:18 METER AND SERVICE LINE INSPECTOR.JDEF Anesthesia Complication Comment: Post-operative progress note Anesthesia: Postop Eval II Evaluation Mental status: Awake and Calm Pain Level: 1 nausea: No Vomiting: No Complications Anesthesia Complication: No
--- NOTE | 2024-04-08 14:16 | PCM.POSTANE2 ---
Anesthesia Postop Eval I Sum Postop Eval Completion status Anesthesia document: Postop Eval 1 completed: Yes Anesthesia Postop Eval I Summary Anesthesia Postop Eval I Summary: Anesthesia Postop Eval I: Assessment Summary Airway patent Yes 04/08/24 12:18 [email or web address] Spontaneous unlabored Yes 04/08/24 12:18 [email or web address] respirations Mental status Awake,Calm 04/08/24 12:18 [email or web address] nausea No 04/08/24 12:18 [email or web address] Vomiting No 04/08/24 12:18 [email or web address] Anesthesia Postop Eval I: Fluid Summary Crystalloid volume administer 600 04/08/24 12:18 [email or web address] (ml) Colloids volume administered ( ml) Blood Product volume administered (ml) Total IV fluid infused 600 04/08/24 12:18 [email or web address] Anesthesia Postop Eval I: Summary Notes Anesthesia Complication No 04/08/24 12:18 [email or web address] Anesthesia Complication Comment: Post-operative progress note Anesthesia: Postop Eval II Evaluation Mental status: Awake and Calm Pain Level: 1 nausea: No Vomiting: No Complications Anesthesia Complication: No
== END 2024-04-08 12:58 | disposition home or self-care (01) ==
LOC: SDC 10:13 → AC 10:13
PROVIDERS: Referring Provider Obstetrics & Gynecology; Visit Provider Obstetrics & Gynecology
PROC: 0UDB8ZZ Extraction of Endometrium, Via Natural or Artificial Opening Endoscopic (ICD-10-PCS; CPT 58558; principal; 2024-04-08 11:35)
DX: N97.9 Female infertility, unspecified (principal); K21.9 Gastro-esophageal reflux disease without esophagitis; F32.A Depression, unspecified; F41.9 Anxiety disorder, unspecified; Z79.899 Other long term (current) drug therapy
CPT/HCPCS: 58555; 00952; 36415; 81025; 83036; 84403; 86762; 86787; 86850; 86900; 86901; J7120; J2405

== ENCOUNTER → 2024-05-02 | Outpatient (CLI) | payer MEDICAID, SELFPAY ==
--- NOTE | 2024-05-02 12:36 | US_ITS ---
STUDY: ULTRASOUND OF THE FEMALE PELVIS - LIMITED REASON FOR EXAM: Female, 33 years old right pelvic pain. S/P left oophorectomy. TECHNIQUE: Transabdominal and transvaginal. TECHNICAL QUALITY: Adequate. COMPARISON: 11/09/2022. FINDINGS: The uterus is anteverted and is in a midline position. The uterus measures 9.0 x 6.0 x 4.1 cm. Normal uterine cervix. The endometrium measures 4-5 mm in thickness, and is hyperechoic. There is no demonstrated endometrial mass. There is no demonstrated myometrial mass. There is a nabothian cyst in the uterine cervix. The right ovary measures 4.2 x 3.1 x 2.0 cm. There is a small follicular cyst measuring 1.8 x 1.4 x 1.0 centimeter. There is no visualized right adnexal mass or complex lesion. There is normal arterial and normal venous vascularity. Postsurgical absence of the left ovary and a left-sided fluid collection measuring 2.7 x 4.0 x 2.1 cm. There is mild fluid in the posterior cul-de-sac. US/Pelvic w/ Transvaginal IMPRESSION: 1. Left-sided fluid collection the left oophorectomy site measuring 2.7 x 4.0 x 2.1 cm. This was not present previously. Etiology is unknown. 2. Small right follicular cyst measuring 1.1 x 1.4 x 1.0 cm. 3. Nabothian cyst in the uterine cervix. 4. No significant abnormality of the uterus. 5. No other new findings or changes. Electronically Signed: Ketan Garza MD at 15:46 EDT ,
== END | disposition home or self-care (01) ==
LOC: OPUS 12:35
PROVIDERS: PCP Nurse Practitioner Family; Referring Provider Obstetrics & Gynecology; Visit Provider Obstetrics & Gynecology
DX: R10.31 Right lower quadrant pain (principal)
CPT/HCPCS: 76830; 76856

== ENCOUNTER → 2024-06-12 | Outpatient (CLI) | payer MEDICAID, SELFPAY ==
[2024-06-16 20:08] LABS: Chlamydia By Nucleic Acid AMP Negative (Negative); Gonococcus By Nucleic Acid AMP Negative (Negative)
== END | disposition home or self-care (01) ==
LOC: LABSPEC 13:41
PROVIDERS: PCP Nurse Practitioner Family; Referring Provider Nurse Practitioner Family; Visit Provider Nurse Practitioner Family
DX: N89.8 Other specified noninflammatory disorders of vagina (principal); Z20.2 Contact with and (suspected) exposure to infections with a predominantly sexual mode of transmission
CPT/HCPCS: 87070; 87205; 87491; 87591

== ENCOUNTER → 2024-09-26 | Outpatient (CLI) | payer MEDICAID, SELFPAY ==
[2024-09-26 09:45] LABS: Hematocrit 37.2 % (37-47); Hemoglobin 12.4 g/dL (12.0-15.0); Mean Corp Hgb Conc 33.3 g/dL (32-36); Mean Corpuscular Hgb 31.3 pg (27.0-32.0); Mean Corpuscular Volume 93.9 fL (81-99); Mean Platelet Vol. 10.2 fl (6.2-12.0); Platelet Count 272 K/mm3 (150-450); RBC Distribution Width SD 44.7 fl (35.1-43.9); Red Blood Count 3.96 M/mm3 (4.2-5.4); White Blood Count 4.9 K/mm3 (4.4-11.0)
[2024-10-01 22:06] LABS: Anti-Mullerian Hormone,Serum 0.625 ng/mL (.)
== END | disposition home or self-care (01) ==
LOC: LAB 09:18
PROVIDERS: PCP Nurse Practitioner Family; Referring Provider Obstetrics & Gynecology; Visit Provider Obstetrics & Gynecology
DX: N97.9 Female infertility, unspecified (principal)
CPT/HCPCS: 36415; 83516; 85027

== ENCOUNTER → 2025-02-12 | Outpatient (CLI) | payer MEDICAID, SELFPAY ==
[2025-02-12 13:03] LABS: HIV Nonreactive (Nonreactive); Hepatitis B Surface Antigen Nonreactive (Nonreactive); Hepatitis C Antibody Nonreactive (Nonreactive); Syphilis Antibodies Nonreactive (Nonreactive)
[2025-02-16 20:08] LABS: Chlamydia By Nucleic Acid AMP Negative (Negative); Gonococcus By Nucleic Acid AMP Negative (Negative)
== END | disposition home or self-care (01) ==
PROVIDERS: PCP Nurse Practitioner Family; Referring Provider Nurse Practitioner Family; Visit Provider Nurse Practitioner Family
DX: Z20.2 Contact with and (suspected) exposure to infections with a predominantly sexual mode of transmission (principal); N89.8 Other specified noninflammatory disorders of vagina
CPT/HCPCS: 36415; 86703; 86780; 86803; 87070; 87205; 87340; 87491; 87591

== ENCOUNTER → 2025-06-02 | Outpatient (CLI) | payer MEDICAID, SELFPAY ==
[2025-06-05 06:08] LABS: Chlamydia By Nucleic Acid AMP Negative (Negative); Gonococcus By Nucleic Acid AMP Negative (Negative)
== END | disposition home or self-care (01) ==
LOC: LABSPEC 16:09
PROVIDERS: PCP Nurse Practitioner Family; Referring Provider Nurse Practitioner Women's Health; Visit Provider Nurse Practitioner Women's Health
DX: N89.8 Other specified noninflammatory disorders of vagina (principal)
CPT/HCPCS: 87070; 87205; 87491; 87591

== ENCOUNTER → 2025-07-22 | Outpatient (CLI) | payer MEDICAID, SELFPAY ==
[2025-07-22 13:20] LABS: HIV Nonreactive (Nonreactive); Hepatitis B Surface Antigen Nonreactive (Nonreactive); Syphilis Antibodies Nonreactive (Nonreactive)
[2025-07-23 15:08] LABS: HCV Quant. RNA PCR HCV Not Detected IU/mL (.)
[2025-07-24 05:07] LABS: Chlamydia By Nucleic Acid AMP Negative (Negative); Gonococcus By Nucleic Acid AMP Negative (Negative)
== END | disposition home or self-care (01) ==
PROVIDERS: PCP Nurse Practitioner Family; Visit Provider Advanced Practice Midwife
DX: Z20.2 Contact with and (suspected) exposure to infections with a predominantly sexual mode of transmission (principal)
CPT/HCPCS: 36415; 86695; 86696; 86703; 86780; 87070; 87205; 87340; 87491; 87522; 87591